=== PATIENT | female | born 1990 | race Caucasian/White ===

== ENCOUNTER → 2017-12-08 13:30 | Outpatient (CLI) | payer MEDICAID, SELFPAY ==
[2017-12-11 10:58] LABS: HPV Reflexed? NOT INDICATED
== END ==
PROVIDERS: Visit Provider Obstetrics & Gynecology
DX: Z12.4 Encounter for screening for malignant neoplasm of cervix (principal)
CPT/HCPCS: 88175; G0145

== ENCOUNTER → 2018-01-26 14:59 | Outpatient (CLI) | payer MEDICAID, SELFPAY ==
[2015-06-26 06:40] VITALS: BMI 47.9
[2018-01-26 17:41] LABS: Chlamydia Trachomatis by PCR Negative (Negative); Neisserai gonorrhoeae by PCR Negative (Negative); Probe Check PASS; Sample Adequacy Control PASS; Specimen Processing Control PASS
== END ==
PROVIDERS: Visit Provider Obstetrics & Gynecology
DX: Z11.3 Encounter for screening for infections with a predominantly sexual mode of transmission (principal)
CPT/HCPCS: 87491; 87591

== ENCOUNTER → 2018-02-06 11:11 | Outpatient (CLI) | payer MEDICAID, SELFPAY ==
[2018-02-06 13:50] LABS: Absolute Lymphocyte Count 2.24 X10^3/ul (0.83-4.51); Absolute Neutrophil Count 5.9 X10^3/uL (2.0-7.7); Basophil# 0.03 X10^3/uL; Basophil% 0.3 % (0-1); Eosinophil# 0.05 X10^3/uL; Eosinophils% 0.5 % (0-5); Hematocrit 41.1 % (37-47); Hemoglobin 13.3 g/dl (12.0-15.0); Lymphocyte # 2.24 X10^3/ul (4.0); Lymphocyte % 24.5 % (19-41); Mean Corp Hgb Conc 32.4 g/gl (32-36); Mean Corpuscular Volume 89.5 fL (81-99); Mean Platelet Vol. 11.2 fl (6.2-12.0); Monocyte# 0.89 X10^3/uL; Monocyte% 9.7 % (0-10); Neutrophil # 5.91 X10^3/uL (2.7-7.7); Neutrophil % 64.7 % (47-70); Platelet Count 294 K/mm3 (150-450); RBC Distribution Width CV 13.4 % (11.6-14.6); RBC Distribution Width SD 43.4 fl (35.1-43.9); Red Blood Count 4.59 M/mm3 (4.2-5.4); White Blood Count 9.2 K/mm3 (4.4-11.0)
[2018-02-06 13:54] LABS: POSITIVE COUNT NO; POSITIVE DIFFERENTIAL NO; POSITIVE MORPHOLOGY NO
[2018-02-06 14:20] LABS: Thyroid Stim Hormone (TSH) 2.43 uIU/mL (0.358-3.74)
[2018-02-06 14:48] LABS: HIV - WCH Non-Reactive (Nonreactive)
[2018-02-06 15:54] LABS: Color, Urine Yellow (Yellow); Glucose, Dipstick Normal (Normal); Ketone-Dipstick Negative (Negative); Leukocyte Esterase-Dipstick Negative /ul (Negative); Nitrite-Dipstick Negative (Negative); Occult Blood-Urine Negative /ul (Negative); Protein-Dipstick Negative (Negative); Urine Bilirubin Dipstick Negative (Negative); Urine Clarity Clear (Clear); Urine Urobilinogen Normal (Normal)
[2018-02-06 16:25] LABS: Amphetamine Urine VISTA NEGATIVE (<1000 ng/mL); Barbiturate Urine VISTA NEGATIVE (< 200 ng/mL); Benzodiazepine Urine VISTA NEGATIVE (< 200 ng/mL); Cocaine Urine VISTA NEGATIVE (< 300 ng/mL); Ecstacy Urine VISTA NEGATIVE (< 500 ng/mL); Methadone Urine VISTA NEGATIVE (< 300 ng/mL); PCP Urine VISTA NEGATIVE (< 25 ng/mL); THC Urine VISTA NEGATIVE (< 50 ng/mL); Vista UDS pH Range 5
[2018-02-09 11:32] LABS: HEPATITIS B SURFACE AG Negative (Negative); Hep C Antibodies 0.2 s/co ratio (0.0-0.9)
[2018-02-12 23:52] LABS: Prenatal RPR NONREACTIVE (NONREACTIVE)
--- OUTSIDE RECORDS SUMMARY | 2018-03-25 04:00 | XMS RPT_ITS ---
:1990 Author Organization OHIP Care Team Providers Name Role Phone KENISHAROSEMARY ANTONIO Primary Care Unavailable Shannan Billy Attending Unavailable Shannan Billy Attending Unavailable Shannan Billy Attending Unavailable JOSEFINA GUPTA Admitting Unavailable JOSEFINA GUPTA Attending Unavailable JOSEFINA GUPTA Consulting Unavailable Elysia [phone], Manav [phone] Consulting Unavailable NONE, NONE Consulting Unavailable NEVA ZAMORA Admitting Unavailable NEVA ZAMORA Attending Unavailable NEVA ZAMORA Consulting Unavailable BERNA FREEMAN MD Primary Care Unavailable BERNA FREEMAN MD Consulting Unavailable LYDIA STEVENSON, BERNA Doe Admitting Unavailable LYDIA STEVENSON, BERNA Doe Attending Unavailable LYDIA STEVENSON, BERNA Doe Primary Care Unavailable NONE, NONE Consulting Unavailable LYDIA STEVENSON, BERNA Doe Admitting Unavailable LYDIA STEVENSON, BERNA Doe Attending Unavailable LYDIA STEVENSON, BERNA Doe Primary Care Unavailable NONE, NONE Consulting Unavailable VLAD STEVENSON, DR CRUZ BECKER Admitting Unavailable VLAD STEVENSON, DR CRUZ BECKER Attending Unavailable VLAD STEVENSON, DR CRUZ BECKER Consulting Unavailable NONE, NONE Consulting Unavailable JAI CARLOS Primary Care Unavailable KRISHNA, KATELYN J Admitting Unavailable KRISHAN, KATELYN J Attending Unavailable Angelito [phone], Lee [phone] Consulting Unavailable JAI CARLOS Consulting Unavailable CARLEE MCHUGH, MADYSON Nielson Consulting Unavailable PROBLEMS PROBLEMS DATE TYPE CONDITION / CODE ATTENDING STATUS SOURCE 03/11/2018 Admitting HEADACHE / KRISHNA, KATELYN Active [facility] diagnosis R51(ICD-10) [facility] Repository 03/11/2018 Unknown HEADACHE / KRISHNA, KATELYN Active [facility] R51(ICD-10) J Hospital Repository 02/06/2018 Unknown Z34.81 - Encounter Shannan Billy Active [facility] for supervision of Community other normal Hospital , first Repository trimester / Z34.81(ICD-10) 01/26/2018 Unknown Z11.3 - Encounter Shannan Billy Active [facility] screening for Community infections with a Hospital predominantly Repository sexual mode of transmission / Z11.3(ICD-10) 12/08/2017 Unknown Z12.4 - Encounter Shannan Billyoster for screening for Community malignant neoplasm [facility] of cervix / Repository Z12.4(ICD-10) 07/18/2017 Admitting Polycystic ovarian NA Active [facility] diagnosis syndrome / Repository E28.2(ICD-10) 07/18/2017 Admitting Obesity, NA Active [facility] diagnosis unspecified / Repository E66.9(ICD-10) 07/18/2017 Admitting Body mass index NA Active [facility] diagnosis (BMI) 40.0-44.9, Repository adult / Z68.41(ICD-10) 07/11/2017 Unknown EPIGASTRIC PAIN / LYDIA STEVENSON, Active [facility] R10.13(ICD-10) [facility] Repository 07/11/2017 Unknown MORBID SEVERE OBES LYDIA STEVENSON, Active [facility] D/T EXCESS KEILA / [facility] E66.01(ICD-10) Repository 07/11/2017 Admitting EPIGASTRIC PAIN / LYDIA STEVENSON, Active [facility] diagnosis R10.13(ICD-10) [facility] Repository 04/03/2017 Admitting ALLERGY TO OTHER [facility], Active [facility] diagnosis FOODS / [facility] Z91.018(ICD-10) Repository 04/03/2017 Unknown ALLERGY TO OTHER [facility], [facility] FOODS / [facility] Z91.018(ICD-10) Repository 04/02/2017 Admitting HX FOOD ALLERGY NEC [facility], [facility] diagnosis / V15.05(ICD-9) [facility] Repository 04/02/2017 Unknown HX FOOD ALLERGY NEC [facility], [facility] / V15.05(ICD-9) [facility] Repository 04/15/2017 Unknown IMPINGEMENT [place], Active [facility] SYNDROME RIGHT [facility] SHOULDER / Repository M75.41(ICD-10) 04/07/2017 Admitting PAIN IN RIGHT [place], Active [facility] diagnosis SHOULDER / [facility] M25.511(ICD-10) Repository 05/07/2017 Unknown PAIN IN RIGHT LYDIA STEVENSON, Active [facility] SHOULDER / [facility] M25.511(ICD-10) Repository 05/07/2017 Admitting CELIAC DISEASE / LYDIA STEVENSON, Active [facility] diagnosis K90.0(ICD-10) [facility] Repository 05/07/2017 Unknown CELIAC DISEASE / LYDIA STEVENSON, Active [facility] K90.0(ICD-10) [facility] Repository 05/07/2017 Unknown PAIN IN RIGHT HIP / LYDIA STEVENSON, Active [facility] M25.551(ICD-10) [facility] Repository 05/07/2017 Unknown BODY MASS INDEX BMI LYDIA STEVENSON, Active [facility] 40.0-44.9 ADULT / [facility] Z68.41(ICD-10) Repository PROCEDURES PROCEDURES No Procedure Records FoundRESULTS RESULTS URINALYSIS WITH REFLEX Collected: 03/10/2018 Status: F Source: [facility] TO CULTURE 3:00 PM HOSPITAL REPOSITORY TYPE CODE TESTS RESULT OUT OF REFERENCE UNITS RANGE LAB 5778-6(RUI YELLOW NC) Color Ur Yellow LAB 69098-4(LO CLEAR INC) Clarity Ur Clear LAB 5811-5(RUI 1.010-1.035 NC) Sp Gr Ur Strip 1.025 LAB 5803-2(RUI 5.5-7.5 NC) pH Ur Strip 5.5 LAB 24902-8(LO TRACE INC) Leukocyte esterase Ur-aCnc Negative LAB 5802-4(RUI NEGATIVE NC) Nitrite Ur Ql Strip Negative LAB 5804-0(RUI NEGATIVE NC) Prot Ur Strip-mCnc Negative LAB 5792-7(RUI NEGATIVE NC) Glucose Ur Strip-mCnc Negative LAB 5797-6(RUI NEGATIVE NC) Ketones Ur Strip-mCnc Negative LAB 26058-1(LO <=1 E.U./dL INC) Urobilinogen Ur-aCnc 0.2 E.U./dL LAB 16031-2(LO NEGATIVE INC) Bilirub Ur Strip-mCnc Negative LAB 88184-9(LO NEGATIVE INC) RBC # Ur Strip Negative Performed By: #### UAR #### [facility] [address] [facility] [place] [address] Restaurant Team Member - Kalina FERRERA [id number] BASIC METABOLIC PANEL Collected: 03/10/2018 Status: F Source: [facility] 2:52 PM HOSPITAL REPOSITORY TYPE CODE TESTS RESULT OUT OF REFERENCE UNITS RANGE LAB 2951-2(LO 136-145 mmol/L INC) 135 Low Sodium SerPl-sCnc LAB 2823-3(LO 3.5-5.1 mmol/L INC) 3.7 Potassium SerPl-sCnc LAB 2075-0(LO 98-107 mmol/L INC) 103 Chloride SerPl-sCnc LAB 2028-9(LO 21-32 mmol/L INC) 22 CO2 SerPl-sCnc LAB 3094-0(LO 7-17 mg/dL INC) 13 BUN SerPl-mCnc LAB 2160-0(LO 0.51-0.95 mg/dL INC) 0.71 Creat SerPl-mCnc LAB 34548-6(L >=59 mL/min OINC) >=59 GFR/BSA.pred SerPl MDRD-ArVRat LAB 2345-7(LO 74-106 mg/dL INC) 81 Glucose SerP-[facility] LAB 77548-7(L 8.5-10.1 mg/dL OINC) 8.3 Low Calcium [facility] LAB 76365-6(L <=15.0 mmol/L OINC) 10.0 Anion Gap3 SerPl-sCnc LAB HGFR(LOIN C) GLOMERULAR HGFR FILTRATION RATE INTERPRETATION~The eGFR is calculated using the MDRD equation.~This equation has been validated in patients with chronic kidney disease;~however, it underestimates the GFR in healthy patients with GFR's over 60 mL/min.~The equation is not valid in children under the age of 18.~NOTE: Criteria for Chronic Kidney Disease:~ ~1. Kidney damage for at least three months, as defined~by structural or functional abnormalities of the kidney,~with or without decreased glomerular filtration rate, manifested by either:~* Pathological abnormalities or~* Markers of Kidney damage, including abnormalities in~the composition of the blood or urine or abnormalities in imaging tests.~ ~2. GFR <60 mL/min/1.73 m squared for at least three months, with or without kidney damage.~ Performed By: #### 27857-8 #### [facility] [address] [place] [address] Restaurant Team Member - Kalina FERRERA [id number] CT HEAD WITHOUT ONLY Observed: 03/10/2018 Status: F Source: [facility] 2:47 PM HOSPITAL REPOSITORY NONCONTRAST HEAD CT COMPARISON: Head CT, 06/14/2016. CLINICAL HISTORY: Headache. TECHNIQUE: Routine noncontrast images of the brain obtained. CT examination of the head without IV contrast. Dose reduction techniques were achieved by using: automated exposure control and/or adjustment of mA and /or kV according to patient size and/or use of iterative reconstruction technique. FINDINGS: Paranasal sinuses and mastoid air cells are clear. Intraorbital contents are unremarkable. No acute bony abnormality. Intracranially, there is no evidence of hemorrhage, mass effect, or midline shift. Ventricles and cisternal spaces are age appropriate. IMPRESSION: No acute intracranial hemorrhage. RUBELLA AB IGG Collected: 02/09/2018 Status: F Source: [facility] 10:44 AM HOSPITAL REPOSITORY TYPE CODE TESTS RESULT OUT OF REFERENCE UNITS RANGE LAB 30965-9(L IU/mL OINC) >500.0 RUBV IgG Ser Ql EIA LAB HRUBELLA( LOINC) RUBELLA IgG HRUBELLA INTERPRETATION <5.0 IU/mL Non-immune 5.0-9.9 IU/mL Equivocal >10.0 IU/mL Immune Performed By: #### 35012-3 #### [address] [place] [address] Restaurant Team Member - Kalina FERRERA [id number] HEP B SURFACE AB Collected: 02/09/2018 Status: F Source: [facility] POST VACCINE 10:44 AM HOSPITAL REPOSITORY TYPE CODE TESTS RESULT OUT OF RANGE REFERENCE UNITS LAB 829095(LOIN Immunity>9.9 mIU/mL C) Low 94073-4 <3.1 Result Comment: Status of Immunity Anti-HBs Level Inconsistent with Immunity 0.0 - 9.9 Consistent with Immunity >9.9 Performed By: #### HBVSAB, VARICG, MUMPSG, RUBEOG #### Performed for [place] [address] VARICELLA IGG CHICKEN Collected: 02/09/2018 Status: F Source: [facility] POX 10:44 AM HOSPITAL REPOSITORY TYPE CODE TESTS RESULT OUT OF RANGE REFERENCE UNITS LAB 737920(LOIN Immune >165 index C) 1103-1 9572 Result Comment: Negative <135 Equivocal 135 - 165 Positive >165 A positive result generally indicates exposure to the pathogen or administration of specific immunoglobulins, but it is not indication of active infection or stage of disease. Performed By: #### HBVSAB, VARICG, MUMPSG, RUBEOG #### Performed for [address] [address] MUMPS AB IGG Collected: 02/09/2018 Status: F Source: [facility] 10:44 AM HOSPITAL REPOSITORY TYPE CODE TESTS RESULT OUT OF RANGE REFERENCE UNITS LAB 870606(LOIN Immune >10.9 AU/mL C) 60557-3 13.4 Result Comment: Negative <9.0 Equivocal 9.0 - 10.9 Positive >10.9 A positive result generally indicates past exposure to Mumps virus or previous vaccination. Performed By: #### HBVSAB, VARICG, MUMPSG, RUBEOG #### Performed for [address] [address] RUBEOLA AB IGG Collected: 02/09/2018 Status: F Source: [facility] 10:44 AM HOSPITAL REPOSITORY TYPE CODE TESTS RESULT OUT OF RANGE REFERENCE UNITS LAB 522898(LOIN Immune >29.9 AU/mL C) 5244-9 107.0 Result Comment: Negative <25.0 Equivocal 25.0 - 29.9 Positive >29.9 Presence of antibodies to Rubeola is presumptive evidence of immunity except when acute infection is suspected. Performed By: #### HBVSAB, VARICG, MUMPSG, RUBEOG #### Performed for [address] [address] URINE DRUG SCREEN Collected: 02/06/2018 Status: F Source: [facility] (VISTA) 11:16 AM [facility] REPOSITORY Order Comment: List of Drugs Taken or Suspected? UNK TYPE CODE TESTS RESULT OUT OF RANGE REFERENCE UNITS LAB L505.0075 TO BE Normal CONFIRMED Result Comment: CONFIRMATORY TESTING FOR ALL POSITIVE URINE DRUG SCREEN RESULTS WILL ONLY BE SENT OUT UPON PHYSICIAN ORDER. VISTA Urine Drug Screen methods provide only preliminary analytical test results. A more specific alternate chemical method must be used in order to obtain a confirmed analytical result. Gas chromatography/mass spectrometery (GC/MS) is the preferred confirmatory method. Clinical consideration and professional judgement should be applied to any drug of abuse test result, particularly when preliminary positive results are used. URINE TCA TESTING MUST BE ORDERED SEPARATELY. USE TEST MNEMONIC: [facility] LAB L505.5005 VISTA UDS PH 5 Normal LAB L505.5015 <1000 ng/mL AMPHETAMINES Normal NEGATIVE LAB L505.5025 < 200 ng/mL BARBITIURATES Normal NEGATIVE LAB L505.5035 < 200 ng/mL BENZODIAZIPINE Normal NEGATIVE LAB L505.5045 < 300 ng/mL COCAINE Normal NEGATIVE LAB L505.5055 < 500 ng/mL ECSTACY Normal NEGATIVE LAB L505.5065 < 300 ng/mL METHADONE Normal NEGATIVE LAB L505.5075 < 300 ng/mL OPIATES Normal NEGATIVE LAB L505.5085 < 25 ng/mL PCP Normal NEGATIVE LAB L505.5095 < 50 ng/mL THC Normal NEGATIVE Performed By: #### L505.5000 #### [facility] [place], [address] CBC W/DIFF, AUTOMATED Collected: 02/06/2018 Status: F Source: [facility] 11:16 AM [facility] REPOSITORY TYPE CODE TESTS RESULT OUT OF RANGE REFERENCE UNITS LAB L100.1000 4.4-11.0 K/mm3 Normal WBC 9.2 LAB L100.1200 4.2-5.4 M/mm3 Normal RBC 4.59 LAB L100.1300 12.0-15.0 g/dl Normal HGB 13.3 LAB L100.1400 37-47 % Normal HCT 41.1 LAB L100.1500 81-99 fL Normal MCV 89.5 LAB L100.1600 27.0-32.0 pg Normal MCH 29.0 LAB L100.1700 32-36 g/gl Normal MCHC 32.4 LAB L100.1810 11.6-14.6 % Normal RDW CV 13.4 LAB L100.1820 35.1-43.9 fl Normal RDW SD 43.4 LAB L100.1900 150-450 K/mm3 Normal PLT 294 LAB L100.2000 6.2-12.0 fl Normal MPV 11.2 LAB L100.2100 47-70 % Normal NEUT% 64.7 LAB L100.2200 19-41 % Normal LY% 24.5 LAB L100.2300 0-10 % Normal MONO% 9.7 LAB L100.2400 0-5 % Normal EO% 0.5 LAB L100.2500 0-1 % Normal BASO% 0.3 LAB L100.2550 0.0-0.9 % Normal IM GRAN % 0.300 Result Comment: IG% - Immature Granulocytes (promyelocytes, myelocytes and metamyelocytes) > 1% indicates that a LEFT SHIFT is Present. LAB L100.2620 2.0-7.7 X10 3/uL Normal Absolute Neut 5.9 LAB L100.2720 0.83-4.51 X10 3/ul Normal Absolute Lymph 2.24 Performed By: #### L100.0100 #### [facility] [address] [place], [address] THYROID STIM HORMONE Collected: 02/06/2018 Status: F Source: [facility] (TSH) 11:16 AM [facility] REPOSITORY TYPE CODE TESTS RESULT OUT OF RANGE REFERENCE UNITS LAB L501.9520 0.358-3.74 uIU/mL Normal TSH 2.43 Performed By: #### L501.9520 #### [facility] [address] [place], [address] T AND S-NO Collected: 02/06/2018 Status: F Source: [facility] CHARGE W/PNP 11:16 AM [facility] REPOSITORY Order Comment: Reason for Type AND Screen/Red Cells: Surgery? N TYPE CODE TESTS RESULT OUT OF RANGE REFERENCE UNITS LAB B10.0800 O Normal BLOOD POSITIVE TYPE [facility]EL LAB B100.4050 Normal Ab SCREEN NEGATIVE GEL Performed By: #### B100.7550 #### [facility] [employer] [place], [address] RUBELLA IGG Collected: 02/06/2018 Status: F Source: [facility] 11:16 AM [facility] REPOSITORY TYPE CODE TESTS RESULT OUT OF RANGE REFERENCE UNITS LAB L509.4000 IU/mL Normal Rubella IgG 341.0 Result Comment: Antibody results Interpretation of Immune Status < 5 IU/ml Presumed Non-immune 5 - < 10 IU/ml Equivocal > or = 10 IU/ml Presumed Immune Performed By: #### L509.4000, L3890.6005 #### [facility] [address] [place], [address] HIV - [facility] Collected: 02/06/2018 Status: F Source: [facility] 11:16 AM [facility] REPOSITORY TYPE CODE TESTS RESULT OUT OF RANGE REFERENCE UNITS LAB L3890.6005 Nonreactive Normal HIV - [facility] Non-Reactive Performed By: #### L509.4000, L3890.6005 #### [facility] [address] [place], [address] URINALYSIS, ROUTINE Collected: 02/06/2018 Status: F Source: [facility] (DIPSTICK) 11:16 AM [facility] REPOSITORY Order Comment: How was Urine Obtained? Urine, Random TYPE CODE TESTS RESULT OUT OF RANGE REFERENCE UNITS LAB L400.3000 Yellow COLOR Normal Yellow LAB L400.3050 Clear Normal CLARITY Clear LAB L400.3200 Normal mg/dl Normal GLUCOSE, UR Normal LAB L400.3300 Negative mg/dL Normal BILIRUBIN URINE Negative LAB L400.3400 Negative mg/dl Normal KETONE UR Negative LAB L400.3465 1.002-1.030 Normal SP.GR. DIPSTX 1.020 LAB L400.3550 5.0 - 8.0 pH UR Normal 6.0 LAB L400.3600 Negative mg/dl PROT Normal DIPSTX Negative LAB L400.3700 Normal mg/dl Normal UROBILI Normal LAB L400.3750 Negative Normal NITRITE UR Negative LAB L400.3780 Negative /ul Normal OCCULT BLOOD-UR Negative LAB L400.3800 Negative /ul LEUK Normal ESTERASE Negative Performed By: #### L400.2010 #### [facility] [address] [place] [address], [address] HEPATITIS B SURFACE Collected: 02/06/2018 Status: F Source: [facility] AG 11:16 AM [facility] REPOSITORY TYPE CODE TESTS RESULT OUT OF RANGE REFERENCE UNITS LAB L3100.0400 Negative Normal HB Negative SURF AG Result Comment: Performed at: - [facility] [id number] [employer] Trimmer: Elfego Cisneros PhD, Phone: [phone] Performed By: #### L3100.0390, L3100.0625 #### [facility] (refer to report for specific site) refer to report for address and phone number HEPATITIS C ANTIBODIES Collected: 02/06/2018 Status: F Source: [place] 11:16 AM [facility] REPOSITORY TYPE CODE TESTS RESULT OUT OF RANGE REFERENCE UNITS LAB L3100.0650 0.0-0.9 s/co ratio Normal HEP C AB 0.2 Result Comment: Negative: < 0.8 Indeterminate: 0.8 - 0.9 Positive: > 0.9 The CDC recommends that a positive HCV antibody result be followed up with a HCV Nucleic Acid Amplification test (939506). Performed By: #### L3100.0390, L3100.0625 #### [facility] (refer to report for specific site) refer to report for address and phone number RPR Collected: 02/06/2018 Status: F Source: [facility] 11:16 AM [facility] REPOSITORY TYPE CODE TESTS RESULT OUT OF REFERENCE UNITS RANGE LAB L700.5100 NONREACTIVE Normal RPR NONREACTIVE Performed By: #### L700.5100 #### [facility] [address] [place], [address] CT/NG WCH BY PCR Collected: 01/26/2018 Status: F Source: [facility] 2:15 PM [facility] REPOSITORY TYPE CODE TESTS RESULT OUT OF RANGE REFERENCE UNITS LAB L8200.2100 Negative Normal Chlam Negative Trac PCR LAB L8200.2200 Negative Normal NG by Negative PCR Performed By: #### L8200.2000 #### [facility] [address] [place], [address] PAP I-G W/RFX HRHPV Collected: 12/08/2017 Status: F Source: [facility] 1:00 PM [facility] REPOSITORY Order Comment: CYTOLOGY INFORMATION: - CLINICAL INFORMATION: - DATE LMP/MENOPAUSE: 11/11/17 LMP - COLLECTION VIAL: Thin Prep Vial - RN HOME CARE SOURCE: CERVICAL/ENDOCERVICAL - COLLECTION TECHNIQUE: BRUSH/SPATULA Specimen Comment: [id number] Specimen Comment: Source.............Cervix;Endocervix Specimen Comment: LMP / Prev Treat...ZAC=[id number] Specimen Comment: No. of containers..01 ThinPrep Vial TYPE CODE TESTS RESULT OUT OF RANGE REFERENCE UNITS LAB L7400.0800 . Normal DIAGN Comment Result Comment: NEGATIVE FOR INTRAEPITHELIAL LESION AND MALIGNANCY. LAB L7400.0900 . Normal ADEQ Comment Result Comment: Satisfactory for evaluation. Endocervical and/or squamous metaplastic cells (endocervical component) are present. LAB L7400.1400 . Normal PERFORM Comment Result Comment: Corry Montague, Quality Assurance Assistant (ASCP) LAB L7400.2575 . Normal TEST METHOD Comment Result Comment: This liquid based ThinPrep(R) pap test was screened with the use of an image guided system. LAB L7400.2600 . Normal . COMM LAB L7400.2700 . Normal PAPSMR Comment Result Comment: The Pap smear is a screening test designed to aid in the detection of premalignant and malignant conditions of the uterine cervix. It is not a diagnostic procedure and should not be used as the sole means of detecting cervical cancer. Both false-positive and false-negative reports do occur. LAB L7400.2800 . Normal HPV RFLX Comment Result Comment: The HPV DNA reflex criteria were not met with this specimen result therefore, no HPV testing was performed. Performed at: - [facility] [id number] [employer] Trimmer: Haley Hernandez MD, Phone: [phone] Performed By: #### L7400.0350 #### [facility] (refer to report for specific site) refer to report for address and phone number RAST BASIC FOOD Collected: 04/02/2017 Status: F Source: [facility] 3:50 PM HOSPITAL REPOSITORY TYPE CODE TESTS RESULT OUT OF REFERENCE UNITS RANGE LAB 106801([facility]) Class Description Comment Result Comment: Levels of Specific IgE Class Description of Class ----- < 0.10 0 Negative 0.10 - 0.31 0/I Equivocal/Low 0.32 - 0.55 I Low 0.56 - 1.40 II Moderate 1.41 - 3.90 III High 3.91 - 19.00 IV Very High 19.01 - 100.00 V Very High >100.00 Very High LAB 773350(LOINC) Class 0 kU/L <0.10 7258-7 LAB 966188(LOINC) Class 0 kU/L <0.10 6276-0 LAB 250839(LOINC) Class 0 kU/L <0.10 6087-1 LAB 552913(LOINC) Class 0 kU/L <0.10 6206-7 LAB 021141(LOINC) Class 0 kU/L <0.10 6248-9 LAB 804519(LOINC) Class 0 kU/L <0.10 6219-0 LAB 284475(LOINC) Class 0 kU/L <0.10 6039-2 LAB 839833(LOINC) 11420-1 Negative Result Comment: Allergens in this mix are: Blue mussel Fish [place] [employer] Tuna LAB 584677(LOINC) Class 0 kU/L 7291-8 <0.10 LAB 550117(LOINC) Class 0 kU/L 6080-6 <0.10 Performed By: #### RASTBF #### Performed for [place] [address] RAST GLUTEN Collected: 04/02/2017 Status: F Source: [facility] 3:50 PM HOSPITAL REPOSITORY TYPE CODE TESTS RESULT OUT OF RANGE REFERENCE UNITS LAB 138755(LOIN Class 0 kU/L C) 6125-9 <0.10 Result Comment: Levels of Specific IgE Class Description of Class ----- < 0.10 0 Negative 0.10 - 0.31 0/I Equivocal/Low 0.32 - 0.55 I Low 0.56 - 1.40 II Moderate 1.41 - 3.90 III High 3.91 - 19.00 IV Very High 19.01 - 100.00 V Very High >100.00 Very High Performed By: #### GLUTEN #### Performed for [place] [address] GLUTEN SENSTIVITY Collected: 04/02/2017 Status: F Source: [facility] 3:50 PM HOSPITAL REPOSITORY TYPE CODE TESTS RESULT OUT OF REFERENCE UNITS RANGE LAB 098703(LOIN C) Note: Comment Result Comment: Not suggestive of gluten sensitivity. LAB 682144(LOINC) Negative 68856-2 Negative LAB 764335(LOINC) 0-19 units 13 61169-9 Result Comment: Negative 0 - 19 Weak Positive 20 - 30 Moderate to Strong Positive >30 . LAB 366494(LOINC) Class 0 kU/L 6276-0 <0.10 LAB 138718(LOINC) Class Description Comment Result Comment: Levels of Specific IgE Class Description of Class ----- < 0.10 0 Negative 0.10 - 0.31 0/I Equivocal/Low 0.32 - 0.55 I Low 0.56 - 1.40 II Moderate 1.41 - 3.90 III High 3.91 - 19.00 IV Very High 19.01 - 100.00 V Very High >100.00 Very High Performed By: #### GLUTENS #### Performed for [facility] [address] [place], [place] [address] SHOULDER RIGHT Observed: 04/02/2017 Status: F Source: [facility] 3:19 PM HOSPITAL REPOSITORY RIGHT SHOULDER, 04/02/2017 INDICATION: Pain. COMPARISON: None. FINDINGS: Three views of the right shoulder demonstrate no acute fracture or dislocation. Osseous structures are well mineralized. Glenohumeral and acromioclavicular joint spaces are well-maintained. Visualized soft tissues appear unremarkable. IMPRESSION: Unremarkable right shoulder radiographs. ALLERGIES ALLERGIES DATE TYPE / NAME / CODE REACTION SEVERITY SOURCE CODE 08/15/2016 DRUG AZITHROMYCIN Hives [facility] INGREDI/41 Repository [id number]( OMED CT) 07/19/2016 Drug PENICILLINS [facility] Class/4195 Repository 80144([facility] ED CT) 06/26/2015 Drug Penicillins/R67466 Hives Unknown [facility] Allergy/41 0476(RXNORM) Community 7714528([facility] OMED CT) Repository 06/26/2015 Drug azithromycin/F0060 Hives Unknown [facility] Allergy/41 51093(RXNORM) Community 0318904([facility] OMED CT) Repository Drug Penicillins/476(RX hospitalized Severe [place] [facility] Allergy/41 NORM) ([facility] 6421762( modifier) Repository OMED CT) (qualifier value) Drug Penicillins/476(RX UNKNOWN [facility] Allergy/41 NORM) Hospital 2165421( Repository OMED CT) Drug Zithromax/1313(RXN UNKNOWN [facility] Allergy/41 ORM) Hospital 6935078(SN Repository OMED CT) Drug Cephalexin/2716(RX UNKNOWN [facility] Allergy/41 NORM) Hospital [id number](SN Repository OMED CT) ENCOUNTERS ENCOUNTERS ADMIT/DISCHARGE ACCOUNT NUMBER ADMITTING ENCOUNTER LOCATION SOURCE CLASS 03/10/2018/03/10/19 [id number] KRISHNA, Ambulatory Lenz Lenz 19 KATELYN [facility] LiveBuilding Repository :EMERGENCY DEPTRoom: [id number]: A 02/09/2018/02/10/20 [id number] VLAD STEVENSON, Ambulatory Lenz Lenz 18 [facility] Live[facility] Repository :MOCC 02/06/2018 [id number] [facility] ding:WOBLAB Repository 01/26/2018 [id number] [facility] ding:LABSPEC Repository 12/08/2017 [id number] [facility] ding:LABSPEC Repository 07/25/2017 [id number] Ambulatory Building:[facility] Repository 07/07/2017/07/08/19 [id number] LYDIA STEVENSON, Ambulatory Lenz Lenz 18 [facility] LiveBuilding Repository :PHY 04/02/2017/04/02/19 [id number] NOAH Ambulatory Lenz Lenz 18 [facility] LiveBuilding Repository :LAB 04/02/2017/04/02/19 [id number] CANDY Ambulatory Lenz Lenz [facility] :DR GUPTA 03/26/2017/03/26/19 [id number] LYDIA STEVENSON, Ambulatory Lenz Lenz 18 [facility] LiveBuilding Repository :PHY PAYERS PAYERS ENCOUNTER GUARANTOR PAYER SUBSCRIBER SOURCE 03/10/2018 DIONNE Borrego Primary DIONNE Lenz [facility] EIDENSDOB: Insurance:[facility]: [facility] [id number] [facility] [id number] Repository LISA Number: [address] [place], [place] [id number] [place], [place] [address]Rfd: [phone]) Date:[address] [address] [phone] (HP) [address], [place] [address]~[address]WP: 02/09/2018 Primary DIONNE Lenz Community Insurance:SELF [facility]IDENSDOB[facility]: [id number] Repository Effective 00 LISA Date: [place] [address] [address] [place], [place] [address]FN: 02/06/2018 Dionne Primary Dionne Griffith [id number] Insurance:CARESOURCEP EidensDOB: [facility] Number: [id number] [place], [place] [id number] Repository [address]Uqg: [phone] Date:2018-02-06P O [phone] (HP) [address]ATTN: [place] [address]HB: 02/06/2018 Secondary NOT GIVENUNK [place] Insurance:SELF PAY [facility] Number: Effective Repository Date:2018-02-06 01/26/2018 Dionne Primary Dionne Gladis [id number] Insurance:CARESOURCEP EidensDOB: [facility] Number: [id number] [facility] [address]Khb: [phone] [id number] Repository [phone] (HP) Date:2018-01-26[address]ATTN[place] [address]HU: 01/26/2018 Secondary NOT GIVENUNK Gladis Insurance:SELF PAY [facility] Number: Effective Repository Date:2018-01-26 12/08/2017 Dionne Primary Dionne Griffith [id number] Insurance:CARESOURCEP EidensDOB: [facility] Number: [id number] [address]Nqr: [phone] [id number] Repository [phone] (HP) Date:2017-12-08[address]ATTN: [place] [address]EN: 12/08/2017 Secondary NOT GIVENUNK [place] Insurance:SELF PAY [facility] Number: Effective Repository Date:2017-12-08 07/25/2017 [facility] EIDENSDOB: Insurance:CARESOURCE EIDENSDOB: Repository E MANAGED [id number] [address] [place], [place] [address]Zeg: Number: [place], [place] [id number] [address]Kyo: [phone] (HP) Date:1919-11-77[phone] (HP) [address] [place] [address]RN: 07/07/2017 [facility] EICOMMUNITY HEALTHSDOB: Insurance:CARESOURCE EIDENSDOB: Hospital [id number] BOX [facility] [id number] Repository [address] [place] [address] Number: [address], [address]Xqc: [phone] [id number] [place] [address] [phone] (HP) Date:[address] [address]~[address]WP: 04/02/2017 [facility] EIDENSDOB: Insurance:CARESOURCE EIDENSDOB: Hospital [id number] BOX [facility] [id number] Repository [address] [place] [address] Number: [address], [address]Two: [phone] [id number] [place] [address] [phone] (HP) Date:[address], [place] [address]~[address]WP: 04/02/2017 [facility]CARESOURCE EIDENSDOB: Hospital [id number] BOX [facility]AGEPolc[facility] [id number] Repository [address] [place] [address] Number: [address]D[facility], [address]Qfs: [phone] [id number] [place] [address] [phone] (HP) Date:2334-64-61[address] [place] [address]~[address] [facility] CenterWP: 03/26/2017 DIONNE Borrego [facility] DIONNE M [facility]: Insurance:[facility]ENTEROB: [facility] [id number] BOX [facility] [id number] Repository [address] [place] [address] Number: [facility] [address], [address]Fmy: [phone] [id number] [place] [address] [phone] (HP) Date:[address] [place] [address]~[address] [facility] Medical CenterWP:
== END ==
PROVIDERS: Visit Provider Obstetrics & Gynecology
DX: Z34.81 Encounter for supervision of other normal pregnancy, first trimester (principal)
CPT/HCPCS: 36415; 80307; 81002; 84443; 85025; 86703; 86762; 86803; 87340

== ENCOUNTER → 2018-04-22 13:59 | Outpatient (CLI) | payer MEDICAID, SELFPAY ==
[2015-06-26 06:40] VITALS: BMI 47.9
[2018-04-26 03:06] LABS: AFP Value-EIA 42.7 ng/mL (.); Comment Report (.); DIA MoM Value 0.89 (.); DIA Value-EIA 112.59 pg/mL (.); DSR (By Age) 665 (.); DSR (Second Trimester) 6203 (.); Gestat. Age Based On As provided (.); Gestational Age 18.7 WEEKS (.); Insulin Dep Diabetes No (.); Maternal Age At EDD 30.4 yr (.); hCG MoM 1.28 (.)
== END ==
PROVIDERS: Visit Provider Obstetrics & Gynecology
DX: O99.212 Obesity complicating pregnancy, second trimester (principal); Z3A.00 Weeks of gestation of pregnancy not specified
CPT/HCPCS: 36415; 82105; 82677; 84702; 86336

== ENCOUNTER 2018-05-31 15:19 | Outpatient (CLI) | payer MEDICAID, SELFPAY ==
[2018-05-31 15:59] LABS: Bacteria 0 SEEN /hpf (None Seen); Mucous, Urine 0 SEEN /hpf (<or=2+)
[2018-05-31 16:00] LABS: Color, Urine Straw (Yellow); Glucose, Dipstick Normal (Normal); Ketone-Dipstick Negative (Negative); Leukocyte Esterase-Dipstick Negative /ul (Negative); Nitrite-Dipstick Negative (Negative); Occult Blood-Urine Negative /ul (Negative); Protein-Dipstick Negative (Negative); Specific Gravity, Urine 1.005 (1.002-1.030); Urine Bilirubin Dipstick Negative (Negative); Urine Clarity Clear (Clear); Urine Urobilinogen Normal (Normal)
[2018-05-31 16:08] LABS: Red Blood Cells-Urine 0-5 SEEN /hpf (0-5); Squamous Epithelial Cells - UA 0-5 SEEN /hpf (5-10); White Blood Cells 0-5 SEEN /hpf (0-5)
[2018-05-31 16:15] VITALS: BMI 46.9
[2018-05-31 16:25] LABS: ROM Internal Control Test YES-OK TO RESULT pt. (Internal QC); ROM Patient Test Negative (Negative); Record Kit Lot#, ROM+ J7836
--- NOTE | 2018-06-01 08:56 | OB.TRI.NOTE ---
History of Present Illness Was patient seen by the physician?: Yes Reason For Visit: RULE OUT SROM Date of Service: 05/31/18 Final JUSTO: 09/18/18 Gestational age: 24 Weeks and 2 Days History of Present Illness: 24+ week intrauterine who fell 3 days prior to presentation and was concerned about some leaking of fluid. movement has been noted. Patient denies any vaginal bleeding. Maternal blood type is Rh+. Some pelvic pressure is noted. Allergies azithromycin [From Zithromax] Allergy (Verified 05/31/18 16:16) Hives Penicillins Allergy (Verified 05/31/18 16:16) Hives Laboratory Studies: Laboratory Tests 05/31/18 05/31/18 Range/Units 15:50 15:20 Urine Color Straw (Yellow) Urine Clarity Clear (Clear) Urine pH 7.0 (5.0 - 8.0) Ur Specific [place] 1.005 (1.002-1.030) Urine Protein Negative (Negative) mg/dl Urine Glucose (UA) Normal (Normal) mg/dl Urine Ketones Negative (Negative) mg/dl Urine Occult Blood Negative (Negative) /ul Urine Nitrite Negative (Negative) Urine Bilirubin Negative (Negative) mg/dL Urine Urobilinogen Normal (Normal) mg/dl Ur Leukocyte Esterase Negative (Negative) /ul Urine RBC 0-5 SEEN (0-5) /hpf Urine WBC 0-5 SEEN (0-5) /hpf Ur Squamous Epith Cells 0-5 SEEN (5-10) /hpf Urine Bacteria 0 SEEN (None Seen) /hpf Urine Mucus 0 SEEN (<or=2+) /hpf Vag Amniotic Fld Detect Negative (Negative) NST - FHR Rate Baby A NST Reactive:: Appropriate for gestational age Impression/Plan 24+ week intrauterine status post fall. Mom test negative. Cervix is closed thick and high. heart tones were auscultated. Likely ligament discomfort from fall a few days ago. Recommended Tylenol. Routine follow-up.
== END 2018-05-31 17:20 | disposition home or self-care (01) ==
LOC: WPOUT 15:44 → WP 15:45
PROVIDERS: Visit Provider Obstetrics & Gynecology
DX: O26.892 Other specified pregnancy related conditions, second trimester (principal); Z3A.24 24 weeks gestation of pregnancy; W19.XXXA Unspecified fall, initial encounter
CPT/HCPCS: 59050; 81001; 84112; 87086; 87088; 99218; G0378

== ENCOUNTER → 2018-06-26 | Outpatient (CLI) | payer MEDICAID, SELFPAY ==
[2018-05-31 16:15] VITALS: BMI 46.9
[2018-06-26 10:40] LABS: Hematocrit 34.4 % (37-47); Hemoglobin 11.3 g/dl (12.0-15.0); Mean Corp Hgb Conc 32.8 g/gl (32-36); Mean Corpuscular Hgb 29.3 pg (27.0-32.0); Mean Corpuscular Volume 89.1 fL (81-99); Mean Platelet Vol. 10.1 fl (6.2-12.0); Platelet Count 251 K/mm3 (150-450); RBC Distribution Width CV 13.8 % (11.6-14.6); RBC Distribution Width SD 44.8 fl (35.1-43.9); Red Blood Count 3.86 M/mm3 (4.2-5.4); White Blood Count 11.2 K/mm3 (4.4-11.0)
[2018-06-26 10:41] LABS: Scan Indicated on CBC? Y/N NO
[2018-06-26 11:00] LABS: Glucose Challenge Gest 1H 50g 112 mg/dL (70-140)
== END | disposition home or self-care (01) ==
LOC: WOBLAB 10:10
PROVIDERS: Visit Provider Obstetrics & Gynecology
DX: Z34.83 Encounter for supervision of other normal pregnancy, third trimester (principal)
CPT/HCPCS: 36415; 82950; 85027

== ENCOUNTER 2018-09-11 04:55 | Inpatient (IN) | payer MEDICAID, SELFPAY ==
--- NOTE | 2018-09-06 22:22 | PCM.HPOB.BLA ---
History and Physical Date of Admission: 09/11/18 OB HISTORY AND PHYSICAL EXAMINATION History of this : 28 yo female Ab1 with EDC 09/18/2018 by Ultrasound, presents to Labor and Delivery for planned repeat C section at 39 wk EGA. care remarkable for 1). 20 wk sono WNL at [facility] 2.) CHEN. Fioricet didn't work ( no RX given by ofc for Fioricet) 3.) MSAFP WNL. Declines CF testing, 4.) First trimester N/V. Anxious re Zofran (dizziness) so stopped that. Phenergan sent in 5.) ALLERGIC to PCN! (anaphylaxis) and Azythromycin 6.) High BMI 7.) H/O depression, EXTREMELY ANXIOUS 8.) Prior C/S delivery. No descent 8# 7 oz. elective C/S. (also poor score) Pertinent Past Medical History: Anxiety Allergies: Azithromycin Anaphylactic reaction to PCN Medications: During - 28 mg iron-800 mcg tablet; Zofran 4 mg tablet; promethazine 25 mg tablet; Bactrim 400 mg-80 mg tablet; Colace 100 mg capsule Review of Systems: Non-contributory PHYSICAL EXAMINATION General Appearence: 28 yo female in no acute distress Vital Signs: AF, VSS Heart: RRR without rubs or gallops Lungs: CTA x 2 Breasts: deferred Abdomen: gravid Pelvis: Cervix: deferred. Presentation: cephalic Station: Fetus: Size: AGA Movement: present Heart: present Impression /Plan: Intrauterine . 39 wk EGA prior C section, planned repeat. Declines BTO. Admit for C section delivery See Progress Notes for Changes: Physician's Signature: Date:
[2018-09-11] VITALS (25 sets, daily range): BP systolic 92–120; BP diastolic 51–73; PULSE 72–118; RESP 14–20; TEMP 36–37.1; O2SAT 97–100; BMI 52.2
[2018-09-11] MEDS: Lactated Ringers 1,000 ML 999 ML IV (05:25)
[2018-09-11 05:45] LABS: Absolute Lymphocyte Count 1.88 X10^3/uL (0.83-4.51); Absolute Neutrophil Count 7.6 X10^3/uL (2.0-7.7); Basophil# 0.03 X10^3/uL; Basophil% 0.3 % (0-1); Hematocrit 36.9 % (37-47); Lymphocyte # 1.88 X10^3/ul (4.0); Lymphocyte % 17.9 % (19-41); Mean Corp Hgb Conc 32.5 g/dL (32-36); Mean Corpuscular Hgb 28.2 pg (27.0-32.0); Mean Corpuscular Volume 86.8 fL (81-99); Mean Platelet Vol. 10.9 fl (6.2-12.0); Monocyte# 0.83 X10^3/uL; Monocyte% 7.9 % (0-10); NRBC Flagged by Analyzer 0 % (0-5); Neutrophil # 7.55 X10^3/uL (2.7-7.7); Platelet Count 219 K/mm3 (150-450); RBC Distribution Width SD 47.3 fl (35.1-43.9); Red Blood Count 4.25 M/mm3 (4.2-5.4); White Blood Count 10.5 K/mm3 (4.4-11.0)
[2018-09-11] MEDS: Lactated Ringers 1,000 ML 150 ML IV (06:38)
[2018-09-11 06:49] LABS: Prothrombin Time (Protime)PT. 13.1 SECONDS (11.7-14.9)
[2018-09-11 06:50] LABS: Partial Thromboplast Time 28.7 Seconds (24.1-36.2)
--- NOTE | 2018-09-11 07:09 | DCINST_ITS ---
Discharge Diet: No Restrictions Discharge Activity: May Shower, May Take a Tub Bath May resume sexual activity in: 4-6 weeks Lifting Restrictions: 20 pounds Additional Activity Instructions:: Nothing in the vagina for 4-6 weeks. You may return to work/school in 6 weeks. Additional Instructions: If you experience any of the following, contact your healthcare provider. * Bleeding that soaks a pad every hour for 2 hours * Fever 100.4 or higher * Unrelieved incision or abdominal pain * Swelling, redness, discharge or bleeding from your incision * Problems urinating (including inability to urinate or burning while urinating). * Visual changes * Severe headache * Flu-like symptoms * Pain or redness in one of both of your breasts * Pain, warmth, tenderness or swelling in your legs, especially the calf area * Frequent nausea and vomiting * Symptoms of depression or anxiety If you experience any of the following, call 911 or go to the nearest Emergency Room. * Chest pain * Problems breathing * Seizure activity * Partial or complete paralysis of a body part, slurred speech, weakness or drooping of the face, or a sudden inability to walk or hold your balance Allergies/Adverse Reactions: Allergies azithromycin [From Zithromax] Allergy (Verified 05/31/18 16:16) Hives Penicillins Allergy (Verified 09/11/18 05:18) Anaphylaxis Medications to take at Discharge Vits [Prenatabs FA] 1 tablet PO DAILY 05/31/18 Docusate Sodium [Colace] 100 mg PO BID #30 cap 09/11/18 Naproxen [Naprosyn] 250 - 500 mg PO TID PRN PRN #30 tab 09/11/18 Oxycodone [Oxyir] 5 - 10 mg PO Q6H PRN PRN 7 Days #20 tablet 09/11/18 Polyethylene Glycol 3350 [Miralax] 17 gm PO DAILY PRN #14 packet 09/11/18 The following prescriptions were given: Docusate Sodium [Colace] 100 mg PO BID #30 cap Transmission Status: Pending to [facility] 2[facility] Polyethylene Glycol 3350 [Miralax] 17 gm PO DAILY PRN #14 packet PRN Reason: Constipation Transmission Status: Pending to [facility] 2148 Naproxen [Naprosyn] 250 - 500 mg PO TID PRN PRN #30 tab PRN Reason: Mild-Mod Pain (1-07/03) [facility] Oxycodone [Oxyir] 5 - 10 mg PO Q6H PRN PRN 7 Days #20 tablet PRN Reason: Mod-Severe Pain (4-12/03) Transmission Status[facility] Follow-Up: Call to make an appointment with your doctor for an incision check in 1-2 weeks. You will also need a 6 week post- follow up appointment. Test results from this visit will be discussed in further detail at your follow- up appointment, if applicable. Please Follow Up With: Shannan Billy MD - [phone] When: Call to make an appointment for an incision check in 2 weeks. Primary Care Physician: Benjamín Luis,Out of [Primary Care Provider] - Proposed Discharge Date: 09/13/18
[2018-09-11] MEDS: Sodium Citrate/Citric Acid 30 ML UDC PO (07:10)
[2018-09-11] MEDS: Oxytocin 30 units/NS 500 ml 30 UNITS/500 ML IV.SOLN 334 UNITS IV (07:56)
[2018-09-11] MEDS: Oxytocin 30 units/NS 500 ml 30 UNITS/500 ML IV.SOLN 167 UNITS IV (08:10)
[2018-09-11] MEDS: Ketorolac 30 MG/ML Syringe IV ×3 (08:18→20:12)
--- NOTE | 2018-09-11 08:22 | OP.PCM_ITS ---
Report of Operation Date of Procedure: 09/11/18 Pre-Operative Diagnosis: 39 wk prior C section. Planned repeat C section Post-Operative Diagnosis: same Surgery/Procedure Performed:: Repeat C section Description of Surgical Findings:: Jurado viable male in VTX presentation, unengaged in maternal pelvis. Baby's weight 7#15.5 oz. Ap 8/9 Serosal fundal fibroid noted.3-4 cm (pedunculated) Normal fallopian tubes and ovaries. Minimal adhesions between lower uterine segment and bladder. french edge operator: Gabrielle Garcia Type of Anesthesia:: Spinal Anesthesiologist: Krunal Wilhelm CRNA Specimen's removed: Placenta Cord blood for typing Drains: Mora Estimated Blood Loss (mL): 600 Fluids Replaced: LR Delivery Classification: Scheduled Final JUSTO: 09/18/18 Gestational age: 39 Weeks and 0 Days Indications: repeat C section. Description of Procedure: Narrative account: After the risks, benefits and alternatives of the procedure were reviewed with the patient, informed consent was obtained. The patient was taken to the Operating room with an IV running, and placed in a seated position on the operating table for placement of the spinal. Once the spinal had been administered, she was briefly frog-legged for Mora catheter placement, and then repositioned to dorsal supine position with leftward displacement of the uterus, and prepped and draped in the usual sterile fashion. Once the spinal was deemed adequate, a Pfannenstiel skin incision was created using the knife (through the prior skin incision scar). The incision was carried down to the rectus fascia using the knife. The fascia was nicked in the midline. The fascial incision was extended bilaterally using curved Puckett scissors. The superior aspect of the fascial incision was grasped with Anna clamps and tented up and the underlying rectus abdominal muscles were dissected free. In a similar manner, the inferior aspect of the facial incision was grasped with Anna clamps tented up and the underlying rectus abdominal muscles were dissected free. The rectus abdominis muscles were in the midline and the peritoneum was identified and entered by blunt dissection high in the incision. The peritoneum was stretched laterally and a bladder blade was inserted. A bladder flap was created along the lower uterine segment with Metzenbaum scissors . The uterine incision was then created using Metzenbaum scissors. The operators fingertips were used to extend the uterine incision by blunt dissection in a caudad- cephalad orientation . Clear fluid was noted at amniotomy. The vertex was then delivered atraumatically through the incision with the aid of Kiwi vacuum. The OP and nares were bulb suctioned on the abdomen. The shoulders delivered easily . The cord clamped x two and cut. And the infant was handed off to the nurse awaiting delivery after briefly showing him to his parents. The baby had a spontaneous, vigorous cry. The placenta was then delivered. The uterus was exteriorized and cleared of clots and debris . The uterine incision was repaired with 1 Vicryl in a running locked fashion. A second imbricating layer was then placed, using 1 Monocryl in running nonlocked fashion. Bovie cautery was used to treat any bleeding areas . Excellent hemostasis was noted. At this point the uterus was returned to the abdominal cavity. The gutters were cleared of clots and debris and the incision at the uterus was inspected. Maritza was applied along the entire incision for continued hemostasis. The peritoneal edges were reapproximated in the midline with a series of vertical mattress stitches of 1 Vicryl. Excellent hemostasis was noted at the subfascial space Maritza was dusted over this layer as well. The fascia was closed in a running nonlocked fashion with a Stratofix. The Subcutaneous fatty tissue was Bovie cauterized as needed for hemostasis. Maritza was liberally dusted at this layer to prevent seroma formation. This layer was then reapproximated in a single layer closure of running 3-0 Vicryl to eliminate space. The skin edges were closed in a Subcuticular stitch of 4-0 Monocryl. The incision was cleansed. Cavilon, Steristrips, and a silver Mepilex dressing were applied to the skin . The patient was then transferred to the recovery room bed in stable condition after tolerating the procedure well. Sponge, lap, needle and instrument counts correct times two. Medications given preop and intraoperatively included: Gentamicin and clindamycin were given site damage prevention technician to the operating room. The patient also received Pitocin given IV after cord clamp, and Toradol 30 mg IV times one. For a complete listing of medications given preop and intraoperatively, please see the anesthesia record. Amniotic Membrane Rupture Type: Artificial Amniotic Fluid Description: Clear Placenta Disposition: [facility] Drain: Mora to straight drain Fluids Replaced: LR Cord Entanglement: None Cord Vessel Description: 3 Vessels Esitmated Blood Loss (ml): 600 Gender: Male (1 minute): 8 (5 minute): 9 Delayed cord clamping: No Pre-op Antibiotic Given: Clindamycin 600mg IV x1 and Gentamicin 1.5mg/kg IV x1 Complications: None - Admit VTE Documentation VTE Present on Admission: No VTE Mechan Device Prophylaxis: SCD's VTE Pharm Prophylaxis ordered?: Yes
[2018-09-11] MEDS: Lactated Ringers 1,000 ML 125 ML IV ×2 (14:29→21:38)
[2018-09-12] VITALS (7 sets, daily range): BP systolic 95–127; BP diastolic 49–72; PULSE 76–115; RESP 16–18; TEMP 35.8–36.7; O2SAT 95–99
[2018-09-12] MEDS: Acetaminophen 500 MG Tablet 1000 MG PO (00:45)
[2018-09-12] MEDS: Ketorolac 30 MG/ML Syringe IV (01:15)
[2018-09-12] MEDS: Enoxaparin 40 MG/0.4 ML Syringe SC (05:27)
[2018-09-12 05:42] LABS: Hematocrit 31.5 % (37-47); Hemoglobin 10.4 g/dL (12.0-15.0); Mean Corpuscular Hgb 28.5 pg (27.0-32.0); Mean Corpuscular Volume 86.3 fL (81-99); Mean Platelet Vol. 10.2 fl (6.2-12.0); Platelet Count 198 K/mm3 (150-450); RBC Distribution Width SD 47.2 fl (35.1-43.9); Red Blood Count 3.65 M/mm3 (4.2-5.4); White Blood Count 20.5 K/mm3 (4.4-11.0)
[2018-09-12] MEDS: Ibuprofen 600 MG Tablet PO ×3 (07:19→21:40)
[2018-09-12] MEDS: Prenatal Vits Tablet 1 TABLET PO (10:40)
[2018-09-12] MEDS: oxyCODONE 5 MG Tablet 10 MG PO ×3 (10:40→23:29)
[2018-09-12] MEDS: Senna/Docusate Sodium 1 Tablet PO (10:40)
--- NOTE | 2018-09-12 16:50 | CASEMGMT ---
Social Work Consult: History of depression, Mother of baby (MOB) anxious. Informant: Nursing staff, Dr. Billy Met with MOB and Father of baby (FOB) in room. MOB denies any history of depression or anxiety. MOB denies any mental health history of concerns. MOB holding during conversation and presenting with positive affect. MOB denies any suicidal thoughts. MOB reporting to have been tearful during but stating this is normal. MOB stating to be more emotional during . MOB and FOB stating to have all needed support and supplies within the community. Nursing staff reporting no concerns with MOB's affect or interaction with infant. MOB stating to have a connection with infant. MOB gazing at infant often during conversation. Support provided. No needed identified at this time. Khloe León MSW, AMRIK
--- NOTE | 2018-09-12 18:51 | PCM.PN.OB ---
Subjective: She is sore today. No nausea or vomiting. OOB, no flatus yet or bowel movement. Denies heavy lochia. Objective: AVSS - Physical Exam General: Alert, Oriented x3, Cooperative HEENT: Atraumatic, Normocephalic Lungs: Clear to auscultation, Normal air movement Cardiovascular: Regular rate, Regular Rhythm Abdomen: Soft, Non Tender, Non-Distended Extremities: No Calf Tenderness, - - trace LE edema Neurological: Neuro grossly intact Psych/Mental Status: Normal Affect, Appropriate, Alert and oriented to time, place, person, mood and affect Vital Signs Temp Pulse Resp BP Pulse Ox 97.5 F L 89 16 99/54 L 97 09/12/18 15:00 09/12/18 15:00 09/12/18 15:00 09/12/18 15:00 09/12/18 06:38 Oxygen Delivery Method Room Air Weight: 136.8 kg Body Mass Index (BMI) 52.2 Intake and Output for Last 24 Hours 09/10/18 09/11/18 09/12/18 23:59 23:59 23:59 Intake Total 2950 / 2950 630 / 630 Output Total 1225 / 1225 1900 / 1900 Balance 1725 / 1725 -1270 / -1270 Laboratory Tests Past 24 Hrs 09/12/18 05:35 WBC 20.5 H RBC 3.65 L Hgb 10.4 L Hct 31.5 L MCV 86.3 MCH 28.5 MCHC 33.0 RDW Std Deviation 47.2 H RDW Coeff of Reji 15.0 H Plt Count 198 MPV 10.2 Medical Necessity - Tobacco Use Smoking Status: Never smoker Assessment/Plan POD#1 s/p LTCS - Start oxycodon for additional pain control - Routine postop care - Rh positive
[2018-09-13 02:00] VITALS: BP 120/57; PULSE 101; RESP 18; TEMP 36.7; O2SAT 96
[2018-09-13] MEDS: oxyCODONE 5 MG Tablet 10 MG PO ×3 (05:44→15:20)
[2018-09-13] MEDS: Enoxaparin 40 MG/0.4 ML Syringe SC (06:00)
[2018-09-13] MEDS: Senna/Docusate Sodium 1 Tablet PO (06:00)
[2018-09-13 07:54] VITALS: BP 100/60; PULSE 95; RESP 16; TEMP 36.5; O2SAT 96
--- NOTE | 2018-09-13 08:46 | PCM.PN.OB ---
Subjective: Pain controlled with medication. No flatus yet. Reports intermittent left abdominal pain and painfulness on urination. Denies fever, chills, nausea. Lochia scant. Desires discharge to home today. Objective: AVSS - Physical Exam General: Alert, Oriented x3, Cooperative, No apparent distress HEENT: Atraumatic, Normocephalic Lungs: Clear to auscultation, Normal air movement Cardiovascular: Regular rate, Regular Rhythm, Normal S1, Normal S2 Abdomen: Soft, Non Tender, Non-Distended, Obese, - - incisional dressing c/d/i, no CVA tenderness Extremities: No Calf Tenderness, - - trace Neurological: Neuro grossly intact Psych/Mental Status: Normal Affect, Appropriate, Alert and oriented to time, place, person, mood and affect Vital Signs Temp Pulse Resp BP Pulse Ox 97.7 F L 95 16 100/60 96 09/13/18 07:54 09/13/18 07:54 09/13/18 07:54 09/13/18 07:54 09/13/18 07:54 Oxygen Delivery Method Room Air Weight: 136.8 kg Body Mass Index (BMI) 52.2 Intake and Output for Last 24 Hours 09/11/18 09/12/18 09/13/18 23:59 23:59 23:59 Intake Total 2950 / 2950 630 / 630 Output Total 1225 / 1225 1900 / 1900 Balance 1725 / 1725 -1270 / -1270 Medical Necessity - Tobacco Use Smoking Status: Never smoker Assessment/Plan 28yo POD#2 s/p LTCS - Routine postop care - U/A - r/o UTI - Rh positive - Plan for d/c home later today
--- NOTE | 2018-09-13 08:53 | DS.PCM_ITS ---
Discharge Date and Diagnosis Date of Admission: 09/11/18 Date of Discharge: 09/13/18 Hospital Course and Treatment Operations: - - Repeat low transverse section Procedures: None Summary of Care Provided: The patient is a 28 year old 3 para 1-0-1-1 admitted for scheduled repeat section. Her section was uncomplicated. She was out of bed ambulating, tolerating a regular diet with pain controlled. She reported UTI symptoms on postop day 2. Urinalysis was negative however urine culture was sent and she was discharged to home. - Physical Exam Vital Signs Temp Pulse Resp BP Pulse Ox 97.7 F L 95 16 100/60 96 09/13/18 07:54 09/13/18 07:54 09/13/18 07:54 09/13/18 07:54 09/13/18 07:54 Oxygen Delivery Method Room Air Weight: 136.8 kg Body Mass Index (BMI) 52.2 Intake and Output for Last 24 Hours 09/11/18 09/12/18 09/13/18 23:59 23:59 23:59 Intake Total 2950 / 2950 630 / 630 Output Total 1225 / 1225 1900 / 1900 Balance 1725 / 1725 -1270 / -1270 Discharge Diet: No Restrictions Discharge Activity: May Shower, May Take a Tub Bath May resume sexual activity in: 4-6 weeks Additional Activity Instructions:: Nothing in the vagina for 4-6 weeks. You may return to work/school in 6 weeks. Home Medications: Medications to take at Discharge Vits [Prenatabs FA] 1 tablet PO DAILY 05/31/18 Docusate Sodium [Colace] 100 mg PO BID #30 cap 09/11/18 Naproxen [Naprosyn] 250 - 500 mg PO TID PRN PRN #30 tab 09/11/18 Polyethylene Glycol 3350 [Miralax] 17 gm PO DAILY PRN #14 packet 09/11/18 Oxycodone [Oxyir] 5 - 10 mg PO Q6H PRN PRN 7 Days #20 tab 09/13/18 Following Prescrptions Were Given to Patient: Docusate Sodium [Colace] 100 mg PO BID #30 cap Transmission Status: Received by [facility] 8288 Polyethylene Glycol 3350 [Miralax] 17 gm PO DAILY PRN #14 packet PRN Reason: Constipation Transmission Status: Received by [email or web address]148 Naproxen [Naprosyn] 250 - 500 mg PO TID PRN PRN #30 tab PRN Reason: Mild-Mod Pain (1-07/03) Transmission Status: Received by [email or web address] 2148 Oxycodone [Oxyir] 5 - 10 mg PO Q6H PRN PRN 7 Days #20 tab PRN Reason: Mod-Severe Pain (-12/03) Transmission Status: Received by [email or web address] Primary Care Physician: [facility] ,Out of [Primary Care Provider] - Please Follow Up With: Shannan Billy MD - [phone] When: Call to make an appointment for an incision check in 2 weeks. Disposition: Home Patient Condition:: Good Medical Necessity - Tobacco Use Smoking Status: Never smoker Meaningful Use Info Meaningful Use Diagnoses (Choose all that apply): None applicable
[2018-09-13] MEDS: Ibuprofen 600 MG Tablet PO (09:35)
[2018-09-13] MEDS: Prenatal Vits Tablet 1 TABLET PO (11:01)
[2018-09-13 11:13] LABS: Bacteria 0 SEEN /hpf (None Seen); Mucous, Urine 0 SEEN /hpf (<or=2+)
[2018-09-13 11:40] LABS: Color, Urine Yellow (Yellow); Glucose, Dipstick Normal (Normal); Ketone-Dipstick Negative (Negative); Leukocyte Esterase-Dipstick 100 /ul (Negative); Nitrite-Dipstick Negative (Negative); Occult Blood-Urine 250 /ul (Negative); Protein-Dipstick 30 mg/dl (Negative); Urine Bilirubin Dipstick Negative (Negative); Urine Clarity Sl. Cloudy (Clear); Urine Urobilinogen Normal (Normal)
[2018-09-13 11:47] LABS: Red Blood Cells-Urine > 100 SEEN /hpf (0-5); Squamous Epithelial Cells - UA 0-5 SEEN /hpf (5-10); White Blood Cells 5-10 SEEN /hpf (0-5)
[2018-09-13 13:14] VITALS: BP 119/74; PULSE 101; RESP 16; TEMP 36.4; O2SAT 97
[2018-09-13 13:15] VITALS: PULSE 101
[2018-09-13] MEDS: Acetaminophen 500 MG Tablet 1000 MG PO (13:49)
== END 2018-09-13 16:30 | disposition home or self-care (01) | DRG 540 ==
PROVIDERS: Obstetrics & Gynecology; Admitting Provider Obstetrics & Gynecology; Referring Provider Obstetrics & Gynecology; Visit Provider Obstetrics & Gynecology
PROC: 10D00Z1 Extraction of Products of Conception, Low, Open Approach (ICD-10-PCS; CPT 59514; principal; 2018-09-11 07:15)
DX: O34.211 Maternal care for low transverse scar from previous cesarean delivery (principal); Z3A.39 39 weeks gestation of pregnancy; Z37.0 Single live birth
CPT/HCPCS: 36415; 81001; 85025; 85027; 85610; 85730; 86850; 86900; 87086; 99218; J7120; G0378; J2405

== ENCOUNTER → 2018-09-24 | Outpatient (CLI) | payer MEDICAID, SELFPAY ==
[2018-09-11 05:20] VITALS: BMI 52.2
== END | disposition home or self-care (01) ==
LOC: WOBLAB 10:58
PROVIDERS: Visit Provider Obstetrics & Gynecology
DX: R30.0 Dysuria (principal)
CPT/HCPCS: 87086; 87088; 87186

== ENCOUNTER → 2018-11-04 | Outpatient (CLI) | payer MEDICAID, SELFPAY ==
[2018-09-11 05:20] VITALS: BMI 52.2
[2018-11-04 13:30] LABS: Hematocrit 39.1 % (37-47); Hemoglobin 12.2 g/dL (12.0-15.0); Mean Corp Hgb Conc 31.2 g/dL (32-36); Mean Corpuscular Hgb 26.7 pg (27.0-32.0); Mean Corpuscular Volume 85.6 fL (81-99); Mean Platelet Vol. 11.1 fl (6.2-12.0); Platelet Count 389 K/mm3 (150-450); RBC Distribution Width CV 14.5 % (11.6-14.6); RBC Distribution Width SD 44.7 fl (35.1-43.9); Red Blood Count 4.57 M/mm3 (4.2-5.4); White Blood Count 6.9 K/mm3 (4.4-11.0)
[2018-11-04 13:48] LABS: Thyroid Stim Hormone (TSH) 1.13 uIU/mL (0.358-3.74)
== END | disposition home or self-care (01) ==
LOC: WOBLAB 12:09
PROVIDERS: Visit Provider Obstetrics & Gynecology
DX: N92.0 Excessive and frequent menstruation with regular cycle (principal)
CPT/HCPCS: 36415; 84443; 85027